=== PATIENT | female | born 1995 | race Caucasian/White ===

== ENCOUNTER 2018-02-14 16:17 | Inpatient (IN) ==
[~2018-02-14 16:17] MED LIST: Famotidine 20 MG/2 ML VIAL IVP PRN; Metoclopramide 10 MG/2 ML VIAL IVP PRN; Naloxone 0.4 MG/ML INJ IVP PRN; Ondansetron 4 MG/2 ML VIAL IVP PRN; Penicillin G Potassium 5,000,000 UNIT in 0.9 % Sodium Chloride Mini Bag 100 ML IVPB ONE
[2018-02-14] MEDS ORDERED: Ringers Solution, Lactated 1,000 ML IVC SCH (16:30)
--- NOTE | 2018-02-14 16:40 | OB/GYN History & Physical ---
Date of Encounter: 02/14/18 Time of Encounter: 16:38 Assessment and Plan (1) 38 weeks gestation of Current visit: Yes Status: Acute (2) Uterine contractions during Current visit: Yes Status: Acute Has made cervical change from office exam Admit to labor and delivery Nubain and epidural as desired if hits 5-6 cm Penicillin for GBS Expectant management at this time Anticipate (3) GBS (group B streptococcus) infection Current visit: Yes Status: Acute History of Present Illness Chief complaint: Contractions HPI: Ms. Montero is a 22 year old female 38+6 weeks gestation complains of contractions. Patient states she started having contractions earlier today following vaginal exam in office, has increased in frequency and pain this afternoon. care with Dr. Urban. course complicated by anemia , GBS positive status. Reports good movement, denies vaginal bleeding or leaking of fluid Labs: B+, rubella nonimmune, varicella immune, GBS positive, all other serologies negative Past Med Surg Social Fam HX - Past Medical History Medical history: no medical history Psychiatric history: no psych history - Past Surgical History Surgical History: no surgical history - Social History Smoking Status: Never smoker Alcohol use: none Drug use: none - Family History Mother Name: Renetta Age: 47 Living Status: Still Living Hx Family Medical Disorders: No Obstetrical History - Pregnancies : 2 Para: 1 Term: 1 : 0 Ab's: 0 Livin Medications and Allergies Vit/Iron Fumarate/FA [ Tablet] 1 tab PO DAILY 02/14/18 [History ] 3 Allergy/AdvReac Type Severity Reaction Status Date / Time No Known Allergies Allergy Verified 02/14/18 14:55 Exam - Constitutional Constitutional: well developed, well nourished, no acute distress, average body habitus - Lungs Respiratory exam: CTAB - Cardiovascular Cardiovascular exam: RRR - Abdomen Abdomen: Present: gravid, non tender - Cervix Dilation: 4 Effacement: 80 Station: -1 Results All other labs normal. - VTE Reasons for not Prescribing Prophylaxis: Treatment not Indicated - Low risk for VTE
[2018-02-14] MEDS: *HR* Nalbuphine 10 MG/ML AMPUL IVP PRN ×2 (17:10→19:30)
[2018-02-14 17:48] LABS: Basophils % 0.1 %; Eosinophils % 0.3 %; Hematocrit 33.6 % (35.3-44.9); Hemoglobin 10.5 g/dL (11.5-15.4); Immature Granulocytes % 0.9 % (0-4); Lymphocytes % 14.3 %; Mean Corpuscular HGB Conc 31.3 g/dL (31.6-35.5); Mean Corpuscular Hemoglobin 21.8 pg (28.0-33.3); Mean Corpuscular Volume 69.7 fL (83.0-100.0); Mean Platelet Volume 10.3 fL (9.4-12.4); Monocytes # 1.1 K/mcL (0.0-1.3); Monocytes % 7.4 %; Nucleated Red Blood Cells 0.1 /100 WBC (0); Platelet Count 278 K/mcL (140-400); Red Blood Count 4.82 M/mcL (3.82-4.97)
[2018-02-14 17:53] LABS: Neutrophils # 10.9 K/mcL (1.6-8.9)
[2018-02-14 18:23] LABS: Hypochromasia Present (Not Present); Microcytosis Present (Not Present); Platelet Estimate Normal (Normal)
[2018-02-14] MEDS ORDERED: Penicillin G Potassium 2,500,000 UNIT in 0.9 % Sodium Chloride 100 ML IVPB SCH (20:00)
[2018-02-14] MEDS ORDERED: Epidural Premix (fent/bupiv) 110 ML EP SCH (20:15)
[2018-02-14] MEDS ORDERED: Ringers Solution, Lactated 1,000 ML ONE (20:30)
[2018-02-14] MEDS ORDERED: Lidocaine -MPF 1% 5 ML AMPUL ONE (20:31)
--- NOTE | 2018-02-14 21:10 | Anesthesia Evaluation PreOp ---
Date of Encounter: 02/14/18 Time of Encounter: 20:30 - Past History Planned Operation: gerardo Cardiac History: Denies any Significant Hx Pulmonary History: Denies Any Significant HX OUTSIDE SALES ACCOUNT REPRESENTATIVE History: Denies Any Significant HX Other Medical History: Denies Any Significant HX Anesthesia History: No Prior Anesthetic Complications : Yes Test: Positive Alcohol Use: none Drug use: none Medications and Allergies Vit/Iron Fumarate/FA [ Tablet] 1 tab PO DAILY 02/14/18 [History ] 3 Allergy/AdvReac Type Severity Reaction Status Date / Time No Known Allergies Allergy Verified 02/14/18 14:55 - Meds/Allergy Pre-op Review Medications Reviewed: Yes Allergies Reviewed: Yes Beta Blockers on Current Med List: No Anesthesia Results - Labs 02/14/18 16:49 Anesthesia Exam - HEENT Pupil (Motor): Pupils equal Mallampati: II Teeth: Normal Oral Opening: Greater than 3 - OUTSIDE SALES ACCOUNT REPRESENTATIVE LOC: Oriented OUTSIDE SALES ACCOUNT REPRESENTATIVE Motor: Normal RUE, Normal LUE, Normal RLE, Normal LLE, Normal Face OUTSIDE SALES ACCOUNT REPRESENTATIVE Sensory: Normal: RUE, LUE, RLE, LLE, Face - Cardiac Rhythm: Regular Murmur: None JVD: No Carotid Bruit: No - Pulmonary Breath Sounds: bilateral Clear Respiratory Effort: Symmetrical Anesthesia Assess/Plan ASA Score: 1 Modified Mason Scale for Level of Consciousness: Cooperative, oriented, and tranquil Anesthetic Plan: Regional Autologous Blood: No Monitoring Plan: Standard Monitors
--- NOTE | 2018-02-14 21:13 | Anesthesia Procedures ---
Date of Encounter: 02/14/18 Time of Encounter: 20:30 Procedures: Anesthesia - Epidural/Spinal Patient ID/Chart reviewed: Yes Patient examined: Yes OB Eval: Gestational age: 38.6 OB Eval: : 2 OB Eval: Hx Para: 1 OB Eval: Dilated at (cm): 5 OB Eval: Contractions: Non-stressed pattern Consent Obtained: Yes Site Prep: Aseptic Technique, Sterile prep and drape, Povidone-Iodine 1% Patient position: upright Amount of Local Anesthetic used: 3 Touhy Needle Gauge: 18 Touhy Needle Depth (cm): 6 Catheter Depth at Skin (cm): 10 Test Dose (1.5% Lido + Epi): Volume given (mls): 3 Test Dose Result: Negative Loading Dose: 0.25% Marcaine (mls): 10 Loading Dose Administered: Thru Catheter Infusion Rate (mls/hr): [address]: Tegaderm, Tape Interspace Used: L3-L4 Loss of Resistance (MAAME): Yes Blood: No CSF: No Paresthesia: No Vitals + FHT's: stable throughout see nursing notes
[2018-02-15] MEDS ORDERED: Oxytocin 20 units/ LR 1000 mL 20 UNIT/1,000 ML BAG IVC ONE (01:15)
--- NOTE | 2018-02-15 02:08 | OB/GYN Procedure Note ---
Delivery - Delivery Date: 02/15/18 Provider: Isaura Seay Intrapartum events: none Delivery induction: none Delivery augmentation: rupture of membranes Delivery monitor: external FHT, external uterine Anesthesia: epidural Quantitated Blood Loss: 250 - (s) Infant A Delivery Date: 02/15/18 Infant Delivery Time: 01:26 Presentation: vertex Position: OA Route of delivery: Gender: Male Viability: Viable Pounds: 8 Ounces: 12 Weight Gram: 3970 kg at 1 minute: 8 at 5 mins: 9 Shoulder Dystocia: not encountered Specimens collected: cord blood Placenta: spontaneous Cord: 3 umbilical vessels, other (short cord ) - Repair Laceration Description: Perineal - 2nd Degree - Complications Delivery complications: none Delivery comments: Admitted in spontaneous labor, progressed to complete, maternal bearing down efforts to of liveborn male. Vertex delivered OA, shoulders and body easily followed, no nuchal cord or shoulder dystocia encountered. Vigorous infant delivered, very short umbilical cord identified, cord clamped and cut, vigorous placed on maternal abdomen Apgars 8/9. Placenta delivered spontaneously (Gaviria), and complete upon inspection, fundus massaged until firm and Pitocin started per policy. Second degree perineal laceration repaired with 3-0 Vicryl EBL 250 - Disposition Mom disposition: stable in LDR disposition: stable in LDR
[2018-02-15] MEDS ORDERED: Acetaminophen 325 MG TABLET PO PRN (04:07)
[2018-02-15] MEDS ORDERED: Benzocaine/Menthol 56 GM AEROSOL SPRAY TP PRN (04:07)
[2018-02-15] MEDS ORDERED: Lanolin 7 G OINT...G. TP PRN (04:07)
[2018-02-15] MEDS ORDERED: Oxytocin 20 units/ LR 1000 mL 20 UNIT/1,000 ML BAG IVC SCH (04:07)
[2018-02-15] MEDS: Prenatal Vit/FA 1 EACH TABLET PO SCH (09:01)
[2018-02-15] MEDS: Ibuprofen 600 MG TABLET PO PRN ×2 (09:01→17:47)
[2018-02-16] MEDS: Ibuprofen 600 MG TABLET PO PRN ×2 (01:59→09:10)
[2018-02-16 05:04] LABS: Basophils % 0.3 %; Eosinophils # 0.1 K/mcL (0.0-0.6); Hematocrit 28.5 % (35.3-44.9); Immature Granulocytes % 1.2 % (0-4); Lymphocytes # 2.8 K/mcL (0.6-4.6); Mean Corpuscular HGB Conc 30.5 g/dL (31.6-35.5); Mean Corpuscular Hemoglobin 21.8 pg (28.0-33.3); Mean Corpuscular Volume 71.4 fL (83.0-100.0); Mean Platelet Volume 10.6 fL (9.4-12.4); Monocytes # 1.1 K/mcL (0.0-1.3); Monocytes % 8.7 %; Neutrophils # 8.4 K/mcL (1.6-8.9); Platelet Count 206 K/mcL (140-400); Red Blood Count 3.99 M/mcL (3.82-4.97); Red Cell Distribution Width 16.1 % (11.5-14.5); Segmented Neutrophils % 66.8 %
[2018-02-16 05:06] LABS: Hemoglobin 8.7 g/dL (11.5-15.4)
[2018-02-16] MEDS: Prenatal Vit/FA 1 EACH TABLET PO SCH (09:10)
--- NOTE | 2018-02-16 09:23 | Discharge Summary ---
Date of Encounter: 02/16/18 Time of Encounter: 09:19 - Discharge Diagnosis (1) Vaginal delivery Priority: Primary Status: Acute Comments: Stable in PP, bottle feeding, pain well managed, tolerates diet, desires discharge. (2) anemia Priority: Secondary Status: Acute Comments: will discharge home on iron - Discharge Medications Prescriptions: Ibuprofen [Motrin] 600 mg PO Q6HR PRN #60 tablet PRN Reason: Cramping Docusate [Colace] 100 mg PO BID #60 capsule Ferrous Sulfate 325 mg PO BIDWM #60 tablet Home Medications: Vit/Iron Fumarate/FA [ Tablet] 1 tab PO DAILY 02/14/18 [History ] Acetaminophen [Tylenol] 650 mg PO Q6HR PRN tablet 02/16/18 [Rx] Benzocaine/Menthol [place] [Dermoplast [place]] 1 appl TP QID PRN aerosol 02/16/18 [Rx] Docusate [Colace] 100 mg PO BID #60 capsule 02/16/18 [Rx] Ferrous Sulfate 325 mg PO BIDWM #60 tablet 02/16/18 [Rx] Ibuprofen [Motrin] 600 mg PO Q6HR PRN #60 tablet 02/16/18 [Rx] Lanolin [Lansinoh] 1 appl TP QID PRN oint...g. 02/16/18 [Rx] Vit/FA 1 each PO DAILY tablet 02/16/18 [Rx] Allergies/Adverse Reactions: 3 Allergy/AdvReac Type Severity Reaction Status Date / Time No Known Allergies Allergy Verified 02/14/18 14:55 Data Procedures and tests throughout hospitalization: Laboratory Tests 02/14/18 02/16/18 16:49 04:36 WBC 14.2 H 12.6 H RBC 4.82 3.99 Hgb 10.5 L 8.7 L D Hct 33.6 L 28.5 L MCV 69.7 L 71.4 L MCH 21.8 L 21.8 L MCHC 31.3 L 30.5 L RDW 16.0 H 16.1 H Plt Count 278 206 MPV 10.3 10.6 Immature Gran % 0.9 1.2 Seg Neutrophils % 77.0 66.8 Lymphocytes % 14.3 22.0 Monocytes % 7.4 8.7 Eosinophils % 0.3 1.0 Basophils % 0.1 0.3 Neutrophils # 10.9 H 8.4 Lymphocytes # 2.0 2.8 Monocytes # 1.1 1.1 Eosinophils # 0.0 0.1 Basophils # 0.0 0.0 Nucleated RBCs/100 WBC 0.1 H Platelet Estimate Normal Hypochromasia Present A Microcytosis Present A Labs on day of discharge: Labs from last 24 hours 02/16/18 04:36 WBC 12.6 H RBC 3.99 Hgb 8.7 L D Hct 28.5 L MCV 71.4 L MCH 21.8 L MCHC 30.5 L RDW 16.1 H Plt Count 206 MPV 10.6 Immature Gran % 1.2 Seg Neutrophils % 66.8 Lymphocytes % 22.0 Monocytes % 8.7 Eosinophils % 1.0 Basophils % 0.3 Neutrophils # 8.4 Lymphocytes # 2.8 Monocytes # 1.1 Eosinophils # 0.1 Basophils # 0.0 Date of admission: 02/14/18 16:17 Primary care physician: PCP BRANDT Discharging clinician: Isaura Seay Anticipated date of discharge: 02/16/18 - Patient Status Disposition: Home, Self-Care Condition: Good Overall status at discharge: patient is back to baseline - Discharge Instructions Instructions: Anemia (GEN) Follow Up With: NONE,PCP [Primary Care Provider] - Constanza Urban DO [Partnered Physician] - - Diet and Activity Activity: resume usual activities as tolerated Diet: regular diet Hospital Course Reason for admission: active labor Delivery: Laceration: 2nd degree, 4th degree complications: none Discharge diagnosis: IUP at term delivered Diamond baby: male Hospital course: Delivery - Delivery Date: 02/15/18 Provider: Isaura Seay Intrapartum events: none Delivery induction: none Delivery augmentation: rupture of membranes Delivery monitor: external FHT, external uterine Anesthesia: epidural Quantitated Blood Loss: 250 - Infant (s) A Infant Delivery Date: 02/15/18 Infant Delivery Time: 01:26 Presentation: vertex Position: OA Route of delivery: Gender: Male Viability: Viable Pounds: 8 Ounces: 12 Weight Gram: 3970 kg at 1 minute: 8 at 5 mins: 9 Shoulder Dystocia: not encountered Specimens collected: cord blood Placenta: spontaneous Cord: 3 umbilical vessels, other (short cord ) - Repair Laceration Description: Perineal - 2nd Degree - Complications Delivery complications: none Delivery comments: Admitted in spontaneous labor, progressed to complete, maternal bearing down efforts to of liveborn male. Vertex delivered OA, shoulders and body easily followed, no nuchal cord or shoulder dystocia encountered. Vigorous infant delivered, very short umbilical cord identified, cord clamped and cut, vigorous placed on maternal abdomen Apgars 8/9. Placenta delivered spontaneously (Gaviria), and complete upon inspection, fundus massaged until firm and Pitocin started per policy. Second degree perineal laceration repaired with 3-0 Vicryl EBL 250 - Disposition Mom disposition: stable in PP and appropriate for discharge, Time Attestation: Total time spent providing and/or coordinating discharge services: Time Spent: Less than 30 minutes Exam - Constitutional Vitals: Temp Pulse Resp BP Pulse Ox 97.9 F 87 16 111/64 100 02/15/18 20:30 02/15/18 20:30 02/16/18 09:03 02/15/18 20:30 02/15/18 20:30 General appearance IM: A&O X 3 - Respiratory Respiratory exam: Present: CTAB - Cardiovascular Cardiovascular exam IM: Present: RRR - GI/Abdominal GI/Abdominal exam IM: soft - Uterine Tone: Firm Uterus Position: At Umbilicus - Extremities Exam Extremities exam IM: Present: normal capillary refill, normal inspection - Neurological Exam Neurological exam: normal gait, oriented X3 - Psychiatric Additional comments: Reports good mood.
[2018-02-16 10:45] VITALS: BP 100/71
== END 2018-02-16 12:43 | disposition home or self-care (01) | DRG 775 ==
LOC: 1NENULAB → 1NENUOBS 02-15 04:04
PROVIDERS: ADMIT Obstetrics & Gynecology; ATTEND Obstetrics & Gynecology